=== PATIENT | female | born 1985 | race Caucasian/White ===

== ENCOUNTER 2018-06-05 12:11 | Inpatient (IN) | payer OTHER ==
[~2018-06-05] VITALS: Ht 167.6 cm; Wt 58.3 kg
[2018-06-05] MEDS ORDERED: ONDANSETRON HCL 4 MG/2 ML VIAL ONE (12:33)
[2018-06-05] MEDS ORDERED: LORAZEPAM 2 MG/ML 1 ML VIAL ONE ×2 (12:33→14:02)
[2018-06-05] MEDS ORDERED: LACTATED RINGERS 1000ML 1,000 ML IV ONE (12:33)
[2018-06-05 12:40] LABS: BASOPHILS % (AUTO) 0.1 % (0.0-5.0); EOSINOPHILS % (AUTO) 0.1 % (0.0-8.0); HEMATOCRIT 41.7 % (36-48); LYMPHOCYTES % (AUTO) 5.3 % (21.0-51.0); MEAN CORPUSCULAR HEMOGLOBIN 31.3 pg (27.0-33.0); MEAN CORPUSCULAR HGB CONC 34.8 g/dL (32.0-36.0); MEAN CORPUSCULAR VOLUME 89.9 fL (79-99); MONOCYTES % (AUTO) 10.7 % (3.0-13.0); NEUTROPHILS % (AUTO) 83.8 % (40.0-77.0); PLATELET COUNT (AUTO) 145 K/uL (130-400); RED BLOOD CELL COUNT(AUTO) 4.64 MIL/uL (4.00-5.50); RED CELL DISTRIBUTION WIDTH 16.2 % (11.0-15.5); WHITE BLOOD COUNT (AUTO) 11.5 K/uL (4.8-10.8)
[2018-06-05 12:52] LABS: CREATININE 0.8 mg/dL (0.5-1.5); POTASSIUM 3.1 mmol/L (3.5-5.1)
[2018-06-05 13:02] LABS: ALBUMIN 4.2 g/dL (3.5-5.0); MAGNESIUM 1.9 mg/dL (1.80-2.40); TOTAL PROTEIN, SERUM 8.3 g/dL (6.0-8.3)
[2018-06-05 13:43] LABS: APPEARANCE,URINE CLOUDY (CLEAR); BILIRUBIN,URINE MODERATE (NEGATIVE); COLOR,URINE YELLOW (YELLOW); GLUCOSE, URINE (UA) 100 mg/dL (NEGATIVE); KETONES,URINE 15 mg/dL (NEGATIVE); LEUKOCYTE ESTERASE ,URINE TRACE (NEGATIVE); NITRATE,URINE POSITIVE (NEGATIVE); OCCULT BLOOD,URINE SMALL (NEGATIVE); PROTEIN,URINE >=300 mg/dL (NEGATIVE)
[2018-06-05 13:45] LABS: HCG,QUAL RESULT NEGATIVE (NEGATIVE)
[2018-06-05 13:52] LABS: AMPHET/METH SCREEN,URINE NEGATIVE (NEGATIVE); BACTERIA,URINE Few /HPF (None Seen); BARBITURATE SCREEN, URINE NEGATIVE (NEGATIVE); BENZODIAZEPINES SCREEN,URINE NEGATIVE (NEGATIVE); CANNABINOID SCREEN,URINE NEGATIVE (NEGATIVE); COCAINE SCREEN,URINE NEGATIVE (NEGATIVE); OPIATE SCREEN,URINE NEGATIVE (NEGATIVE); PHENCYCLIDINE SCREEN,URINE NEGATIVE (NEGATIVE); WBC,URINE 51-100 /HPF (0-1)
[2018-06-05 13:53] LABS: MUCUS,URINE Moderate LPF (None Seen); SQUAMOUS EPITHELIAL CELL,UR Moderate /HPF (0-2)
[2018-06-05] MEDS ORDERED: POTASSIUM CHLORIDE 10% ELIXIR 20 MEQ/15 ML UDCUP ONE (14:01)
[2018-06-05] MEDS ORDERED: THIAMINE HCL 100 MG/ML 2ML VIAL ONE (14:01)
[2018-06-05] MEDS ORDERED: CEFTRIAXONE SODIUM 1 GM ONE (14:34)
[2018-06-05] MEDS ORDERED: ONDANSETRON HCL 4 MG/2 ML VIAL IV PRN (15:45)
[2018-06-05] MEDS ORDERED: HYDRALAZINE HCL 20 MG/ML VIAL IV PRN (15:45)
[2018-06-05] MEDS ORDERED: LACTULOSE 20 GM/30 ML UDCUP PO PRN (15:45)
[2018-06-05 16:19] LABS: MAGNESIUM 1.2 mg/dL (1.80-2.40); PHOSPHORUS 3.5 mg/dL (2.5-4.9); THYROID STIMULATING HORMONE 3.19 uIU/mL (0.36-3.74)
[2018-06-05] MEDS ORDERED: CHLORDIAZEPOXIDE HCL 25 MG CAP ONE (16:46)
[2018-06-05 20:25] VITALS: BP 127/94
[2018-06-05] MEDS: METOPROLOL TARTRATE 25 MG TAB PO SCH (22:14)
[2018-06-05] MEDS: CHLORDIAZEPOXIDE HCL 25 MG CAP PO PRN (22:15)
[2018-06-05] MEDS: SODIUM CHLORIDE 0.9% 1000ML 1,000 ML IV SCH (22:18)
[2018-06-05] MEDS: FAMOTIDINE/PF 20 MG/2 ML VIAL IV SCH (22:19)
[2018-06-05 23:00] VITALS: BP 125/91
[2018-06-06] MEDS ORDERED: LIDOCAINE HCL-MPF 1% 2ML VIAL IVP PRN
[2018-06-06] MEDS ORDERED: POTASSIUM CHLORIDE 10% ELIXIR 20 MEQ/15 ML UDCUP PO PRN
[2018-06-06] MEDS ORDERED: POTASSIUM CHLORIDE 20MEQ/100ML 100 ML IV PRN
[2018-06-06] MEDS ORDERED: MAGNESIUM 2GM PREMIX 50ML 50 ML IV PRN
[2018-06-06] MEDS: POTASSIUM CHLORIDE 20 MEQ ERTAB PO PRN ×3 (00:18→17:39)
[2018-06-06] MEDS: LORAZEPAM 2 MG/ML 1 ML VIAL IVP PRN (01:49)
[2018-06-06 03:00] VITALS: BP 130/104
[2018-06-06 08:00] VITALS: BP 130/84
--- NOTE | 2018-06-06 08:00 | NUR ---
PT AAO X 3 . VERY MILD SHAKING, DENIES ANY DISCOMFORT. FOR NOW. NEURO .STATUS REVIEW. NOTED A LT PUPIL A 8 MM . AND A 6 MM TO HER RT EYE, REVIEW DIFFERENT SIZES . PT STATED THAT SHE HAD THAT SINCE SHE WAS A LITTLE GIRL NO VISIONAL DISCOMFORT. . IVF AT 100 CC TO HER LAC NOTED NO REDNESS TO SITE
[2018-06-06] MEDS: FAMOTIDINE/PF 20 MG/2 ML VIAL IV SCH ×2 (08:31→20:25)
[2018-06-06] MEDS: THIAMINE HCL 100 MG/ML 2ML VIAL IM SCH (08:32)
[2018-06-06] MEDS: METOPROLOL TARTRATE 25 MG TAB PO SCH ×2 (08:33→20:25)
[2018-06-06] MEDS: FOLIC ACID 1 MG TABLET PO SCH (08:34)
[2018-06-06] MEDS: MULTIVITAMIN TABLET PO SCH (08:36)
[2018-06-06] MEDS: SODIUM CHLORIDE 0.9% 1000ML 1,000 ML IV SCH ×3 (08:53→20:01)
[2018-06-06] MEDS: ENOXAPARIN SODIUM 40 MG/0.4 ML SYRINGE SQ SCH (08:53)
[2018-06-06 12:00] VITALS: BP 153/94
--- NOTE | 2018-06-06 12:45 | NUR ---
DR. MERCER HERE AND SPOKE WITH PT OF STATUS CARE , MAY AWARE OF HER EYES PUPILS LT ONE LARGER THAN THE RT. . DR. MERCER AWARE OF PUPILS STATUS. . PT UP IN THE ROOM ,DENIES ANY DISCOMFORT WILL STILL BE MONITOR TODAY. . FAMILY AT THE BEDSIDE . NOTED NO TREMERS .STATED THAT SHE WAS FINE . .
[2018-06-06] MEDS: CHLORDIAZEPOXIDE HCL 25 MG CAP PO PRN ×2 (14:54→20:28)
--- NOTE | 2018-06-06 14:54 | NUR ---
CHARTED . PT WAS GIVEN LIBRIUM 25 MG CAP PO FOR A SCORE OF 9, Addendum: 06/06/18 at 2008 by WILLIAM APONTE RN RN Amended: Links added.
[2018-06-06 16:00] VITALS: BP 144/95
--- NOTE | 2018-06-06 16:00 | NUR ---
HOLLY IA MET W PT IN ROOM ALONE, AAO X3, ENG SPEAKING, NO DISTERSS, SOME SHAKINESS NOTED. PT ACKNOWLEGES HER FOR ETOH WITHDRAWAL, LIVE W GRANDFATHER, BOYFRIEND BERNICE DYER TO PROVIDE TRANSPORT HOME, STATES WAS WORKING AT [employer] BUT IS NOT NOW SURE IF SHE HAS A JOB. DISCUSSED COMMUNITY SUPPORT FOR DRINKING ADN LOW COST CLNICE. DCP PLAN IS BACK T HOME . HOLLY TO FOLLOW NEEDED Addendum: 06/08/18 at 0730 by LE HONEYCUTT RN CM Amended: Links added.
--- NOTE | 2018-06-06 16:00 | NUR ---
PT .AWAKE, AND REVIEW FALL RISK. AT PRESENT DENIES ANY NAUSEA. NOTED NO TREMORS .
--- NOTE | 2018-06-06 16:06 | NUR ---
CM/IA MET W PT, JENNIFER, AAOX3, INDP ADLS, STATES WAS EMPLOYED BUT DOES NOT KNOW IF SHE SSTILL HAS A JOB, PT IS IN WITHDRAWAL PER HER STATEMENT; LIVE WITH GRANDFATHER BUT BOYFRIEND WILL PROVIDE RIDE HOME WANTS INFO RE SELF PAY CLINICS. WILL RE VISIT WITH THIS INOF. PLAN IS HOME TO FOLLOW UP WITH COMMUNITY SUPPORT GROUPS
[2018-06-06 20:00] VITALS: BP 142/87
[2018-06-07] VITALS (7 sets, daily range): BP systolic 122–163; BP diastolic 70–107
[2018-06-07] MEDS: SODIUM CHLORIDE 0.9% 1000ML 1,000 ML IV SCH ×3 (00:57→14:17)
--- NOTE | 2018-06-07 01:30 | NUR ---
PT CONFUSED PT CONFUSED THINKING PEOPLE NEEDED HELP OUTSIDE HER ROOM. PT CUT IV LINE IN ATTEMPTS TO GET FREE. REORIENTATED PT TO ROOM, MYSELF, TIME AND PLACE. PT BF ALSO HELPED WITH REORIENTATION. PT ANXIETY DECREASED ONCE PT WAS REORIENTATED.
[2018-06-07 07:06] LABS: HEMATOCRIT 36.8 % (36-48); MEAN CORPUSCULAR HEMOGLOBIN 31.4 pg (27.0-33.0); MEAN CORPUSCULAR HGB CONC 33.8 g/dL (32.0-36.0); MEAN CORPUSCULAR VOLUME 93.1 fL (79-99); NUCLEATED RED BLOOD CELLS 0.1 % (0.0-0.19); PLATELET COUNT (AUTO) 117 K/uL (130-400); RED BLOOD CELL COUNT(AUTO) 3.95 MIL/uL (4.00-5.50); RED CELL DISTRIBUTION WIDTH 16.3 % (11.0-15.5); WHITE BLOOD COUNT (AUTO) 5.5 K/uL (4.8-10.8)
[2018-06-07 07:17] LABS: INR 1.08 (0.85-1.15); PROTHROMBIN TIME 11.3 SEC (9.6-11.6)
[2018-06-07 07:21] LABS: ALBUMIN 3.1 g/dL (3.5-5.0); BILIRUBIN,TOTAL 0.7 mg/dL (0.2-1.0); CREATININE 0.7 mg/dL (0.5-1.5); MAGNESIUM 1.7 mg/dL (1.80-2.40); PHOSPHORUS 3.3 mg/dL (2.5-4.9); POTASSIUM 3.8 mmol/L (3.5-5.1); TOTAL PROTEIN, SERUM 6.7 g/dL (6.0-8.3)
[2018-06-07] MEDS: METOPROLOL TARTRATE 25 MG TAB PO SCH ×2 (08:53→22:21)
[2018-06-07] MEDS: CHLORDIAZEPOXIDE HCL 25 MG CAP PO PRN ×2 (08:53→13:29)
[2018-06-07] MEDS: FOLIC ACID 1 MG TABLET PO SCH (08:54)
[2018-06-07] MEDS: HYDROCHLOROTHIAZIDE 25 MG TABLET PO SCH (08:54)
[2018-06-07] MEDS: FAMOTIDINE/PF 20 MG/2 ML VIAL IV SCH ×2 (08:54→23:28)
[2018-06-07] MEDS: MULTIVITAMIN TABLET PO SCH (08:54)
[2018-06-07] MEDS: THIAMINE HCL 100 MG/ML 2ML VIAL IM SCH (08:55)
[2018-06-07] MEDS: ENOXAPARIN SODIUM 40 MG/0.4 ML SYRINGE SQ SCH (08:55)
[2018-06-07] MEDS: LORAZEPAM 2 MG/ML 1 ML VIAL IVP PRN ×2 (11:43→15:37)
[2018-06-07] MEDS ORDERED: PHARMACY COMMUNICATION MISC SCH (14:30)
--- NOTE | 2018-06-07 15:00 | NUR ---
PATIENT PACING ,NERVOUS STATE, PRN ATIVAN AND LIBRIUM GIVEN PER CIWA SCORE OF 15 . WILL CONTINUE TO MONITOR
[2018-06-07] MEDS ORDERED: M.V.I. IV [ADULT] 10 ML, THIAMINE HCL 100 MG, FOLIC ACID 1 MG in SODIUM CHLORIDE 0.9% 1... IV SCH (15:23)
--- NOTE | 2018-06-07 18:48 | NUR ---
PSYCHIATRIST VISITING PATENT ON CONSULT
--- NOTE | 2018-06-07 19:30 | NUR ---
dr lopez , evaluated patient and per md to have [facility] to evaluate patient tonight , called [facility] and spoke with shagufta, per shagufta a screener will come to facility to screen patient tonight . gave information on hospital c, room 332 and diagnosis and reason . informed germain palacios for hospitalist on situation and per dr dalton notes and recommendation for [facility] to screen patient. explained to patient to stay for interview. at this time patient agreed to stay . will continue to monitor . Addendum: 06/07/18 at 2030 by CHLOE ALBRIGHT RN RN also informed household cook carmita on patient situation with dr lopez recommendation for possible section and having [facility] to come and evaluate patient. per [facility] has hot line number and to call to have them come .
--- NOTE | 2018-06-07 20:26 | NUR ---
called back to germain palacios on calling [facility] hot line number, a screener will come by selene . per germain palacios patient medically cleared to be screened by [facility] . informed night nurse as well
[2018-06-07] MEDS ORDERED: VENLAFAXINE HCL 75 MG TAB PO SCH (21:00)
[2018-06-07] MEDS: BUSPIRONE HCL 5 MG TABLET PO SCH (22:21)
[2018-06-08] MEDS: SODIUM CHLORIDE 0.9% 1000ML 1,000 ML IV SCH (03:20)
[2018-06-08 04:00] VITALS: BP 122/66
[2018-06-08 07:00] VITALS: BP 123/77
[2018-06-08] MEDS: MULTIVITAMIN TABLET PO SCH (08:53)
[2018-06-08] MEDS: METOPROLOL TARTRATE 25 MG TAB PO SCH (08:53)
[2018-06-08] MEDS: BUSPIRONE HCL 5 MG TABLET PO SCH (08:53)
[2018-06-08] MEDS: HYDROCHLOROTHIAZIDE 25 MG TABLET PO SCH (08:53)
[2018-06-08] MEDS: FAMOTIDINE/PF 20 MG/2 ML VIAL IV SCH (08:53)
[2018-06-08] MEDS: ENOXAPARIN SODIUM 40 MG/0.4 ML SYRINGE SQ SCH (08:54)
[2018-06-08 11:00] VITALS: BP 115/83
--- NOTE | 2018-06-08 12:02 | NUR ---
paged dr dalton on needing prescription for buspar and effexor before discharge. pending call back
[2018-06-08] MEDS: LORAZEPAM 2 MG/ML 1 ML VIAL IVP PRN (12:05)
--- NOTE | 2018-06-08 13:15 | NUR ---
PATIENT AT NERVOUS STATE , INFORMED AJ ,MANAGER FIXED INCOME REGARDING PRN ATIVAN AND PENDING DISCHARGE . PER AJ TO GO AHEAD AND GIVE ATIVAN FOR NOW AND PENDING CLEARANCE FROM PHYCIATRIST TO SEE PT .
--- NOTE | 2018-06-08 13:30 | NUR ---
DR ESCOBAR HERE TO SEE PATIENT ,PER MD WILL WRITE PRESCRIPITON FOR BUSPAR AND EFFEXOR FOR PATIENT AND FOLLOW UP IN CLINIC NEXT WEEK. AJ ,INGOT BUGGY OPERATOR ALSO PRESENT. INSTRUCTIONS GIVEN TO PATIENT AND BOYFRIEND . LET HER KNOW ALSO ON FOLLOW UP APPOINTMENTS. PATIENT VERBILIZED UNDERSTANDING
== END 2018-06-08 13:10 | disposition home or self-care (01) | DRG 641 ==
LOC: EDH 12:11 → EDHIP 12:12 → 3AH 19:41
PROVIDERS: ADMIT Internal Medicine; ATTEND Internal Medicine
DX: E87.1 Hypo-osmolality and hyponatremia (principal); F10.239 Alcohol dependence with withdrawal, unspecified; E87.6 Hypokalemia; F10.229 Alcohol dependence with intoxication, unspecified; F39 Unspecified mood [affective] disorder; Y90.0 Blood alcohol level of less than 20 mg/100 ml; F43.22 Adjustment disorder with anxiety; Z87.891 Personal history of nicotine dependence; Z87.81 Personal history of (healed) traumatic fracture
CPT/HCPCS: 36415; 70450; 71045; 80053; 80305; 81001; 81025; 82550; 83735; 84100; 84443; 84484; 85025; 85027; 85610; 85730; 87088; 93005; 99291; G0378; G0480; J0696; J1650; J2060; J2405; J3411; J3475; J3490; J7030; J7120

== ENCOUNTER 2018-09-30 00:37 | Emergency (ER) | payer OTHER ==
[2018-09-30] MEDS ORDERED: LORAZEPAM 2 MG/ML 1 ML VIAL ONE (01:06)
[2018-09-30] MEDS ORDERED: SODIUM CHLORIDE 0.9% 1000ML 1,000 ML IV ONE (01:07)
[2018-09-30 01:08] LABS: BASOPHILS % (AUTO) 0.3 % (0.0-5.0); EOSINOPHILS % (AUTO) 0.6 % (0.0-8.0); HEMATOCRIT 36.6 % (36-48); LYMPHOCYTES % (AUTO) 16.5 % (21.0-51.0); MEAN CORPUSCULAR HEMOGLOBIN 36.6 pg (27.0-33.0); MEAN CORPUSCULAR HGB CONC 35.4 g/dL (32.0-36.0); MEAN CORPUSCULAR VOLUME 103.4 fL (79-99); MONOCYTES % (AUTO) 18.6 % (3.0-13.0); PLATELET COUNT (AUTO) 148 K/uL (130-400); RED BLOOD CELL COUNT(AUTO) 3.54 MIL/uL (4.00-5.50); RED CELL DISTRIBUTION WIDTH 16.8 % (11.0-15.5); WHITE BLOOD COUNT (AUTO) 8.7 K/uL (4.8-10.8)
[2018-09-30 01:18] LABS: CREATININE 1.2 mg/dL (0.5-1.5); POTASSIUM 4.3 mmol/L (3.5-5.1)
[2018-09-30 01:22] LABS: ALBUMIN 3.3 g/dL (3.5-5.0); BILIRUBIN,TOTAL 1.9 mg/dL (0.2-1.0); TOTAL PROTEIN, SERUM 7.4 g/dL (6.0-8.3)
[2018-09-30] MEDS ORDERED: ONDANSETRON HCL 4 MG/2 ML VIAL ONE (01:39)
[2018-09-30] MEDS ORDERED: MORPHINE SULFATE 4 MG/1ML SYG ONE (01:39)
== END 2018-09-30 02:56 | disposition home or self-care (01) ==
LOC: EDH 00:37
DX: F10.239 Alcohol dependence with withdrawal, unspecified (principal); R56.9 Unspecified convulsions; Z87.891 Personal history of nicotine dependence
CPT/HCPCS: 36415; 80053; 85025; 93005; 96374; 96375; 99285; G0480; J2060; J2270; J2405; J7030

== ENCOUNTER 2018-10-12 14:13 | Emergency (ER) | payer OTHER ==
[2018-10-12 15:17] LABS: BASOPHILS % (AUTO) 0.6 % (0.0-5.0); EOSINOPHILS % (AUTO) 2.7 % (0.0-8.0); HEMATOCRIT 33.7 % (36-48); MEAN CORPUSCULAR HEMOGLOBIN 35.6 pg (27.0-33.0); MEAN CORPUSCULAR HGB CONC 33.7 g/dL (32.0-36.0); MEAN CORPUSCULAR VOLUME 105.6 fL (79-99); MONOCYTES % (AUTO) 12.7 % (3.0-13.0); PLATELET COUNT (AUTO) 472 K/uL (130-400); RED BLOOD CELL COUNT(AUTO) 3.19 MIL/uL (4.00-5.50); RED CELL DISTRIBUTION WIDTH 14.9 % (11.0-15.5); WHITE BLOOD COUNT (AUTO) 5.5 K/uL (4.8-10.8)
[2018-10-12 15:19] LABS: APPEARANCE,URINE Clear (CLEAR); BILIRUBIN,URINE Negative (NEGATIVE); COLOR,URINE Yellow (YELLOW); GLUCOSE, URINE (UA) Negative (NEGATIVE); KETONES,URINE Negative (NEGATIVE); LEUKOCYTE ESTERASE ,URINE Trace (NEGATIVE); NITRATE,URINE Negative (NEGATIVE); OCCULT BLOOD,URINE Negative (NEGATIVE); PROTEIN,URINE Negative (NEGATIVE); UROBILINOGEN,URINE 0.2 mg/dL (0.2-1.0)
[2018-10-12 15:24] LABS: HCG,QUAL RESULT NEGATIVE (NEGATIVE)
[2018-10-12 15:27] LABS: CREATININE 0.6 mg/dL (0.5-1.5); POTASSIUM 3.7 mmol/L (3.5-5.1)
[2018-10-12 15:28] LABS: BACTERIA,URINE Few /HPF (None Seen); HYALINE CASTS, URINE 0-1 /LPF (0-1 /LPF); SQUAMOUS EPITHELIAL CELL,UR Few /HPF (0-2); WBC,URINE 0-1 /HPF (0-1)
[2018-10-12 15:29] LABS: MUCUS,URINE Few LPF (None Seen)
[2018-10-12 15:32] LABS: BILIRUBIN,TOTAL 0.3 mg/dL (0.2-1.0)
[2018-10-12 15:43] LABS: B-TYPE NATRIURETIC PEPTIDE 335 pg/mL (0-100)
== END 2018-10-12 17:02 | disposition home or self-care (01) ==
LOC: EDH 14:13
DX: R60.0 Localized edema (principal); Z98.890 Other specified postprocedural states
CPT/HCPCS: 36415; 71045; 80053; 81001; 81025; 83880; 85025; 85378; 93005